=== PATIENT | female | born 1980 | race Caucasian/White ===

== ENCOUNTER 2019-02-25 08:44 | Emergency (ER) | payer MEDICAID ==
[~2019-02-25] VITALS: Ht 157.5 cm; Wt 73.0 kg
[2019-02-25 11:23] VITALS: BP 106/59
== END 2019-02-25 11:23 | disposition home or self-care (01) ==
LOC: ED 08:44
DX: K12.0 Recurrent oral aphthae (principal); Z98.890 Other specified postprocedural states